=== PATIENT | male | born 1945 | race Caucasian/White ===

== ENCOUNTER → 2016-11-01 | Outpatient (CLI) | payer BC ==
[~2016-11-01] MED LIST: ASPI81TA28 PO; GLCSR5 PO; IBUP-103 PO; INDO-24 PO; METF500T5 PO; MULT-506 PO; NEOMOIN2 TOP; OXYC-57 PO
[2016-11-01 12:28] LABS: BASO % 0.8 %; BASO ABS # 0.05 K/uL (0-0.2); COMPLETE YES; EOS % 2.1 %; HEMATOCRIT 43.7 % (42-52); IG% 0.2 %; LYMPH ABS # 1.97 K/uL (1.2-3.4); MEAN CELL VOLUME 85.4 fL (80-100); MEAN CORPUSCULAR HEMOGLOBIN 30.1 pg (25-34); MEAN CORPUSCULAR HGB CONC 35.2 g/dl (32-36); MEAN PLATELET VOLUME 12.1 fL (7.4-10.4); MONO % 9.5 %; NEUT % 57.4 %; PLATELET COUNT 219 K/uL (130-400); RED BLOOD COUNT 5.12 M/uL (4.7-6.1); WHITE BLOOD COUNT 6.56 K/uL (4.8-10.8)
[2016-11-01 12:47] LABS: ESTIMATED AVERAGE GLUCOSE 157 mg/dl; HA1C FLAG Normal (Normal)
[2016-11-01 12:53] LABS: BLOOD UREA NITROGEN 20 mg/dl (7-18); BUN/CREATININE RATIO 16.8 (10-20); CALCIUM 8.8 mg/dl (8.5-10.1); CARBON DIOXIDE 21 mmol/L (21-32); CHLORIDE 103 mmol/L (98-107); GLUCOSE 158 mg/dl (70-99); POTASSIUM 4.1 mmol/L (3.5-5.1); SODIUM 137 mmol/L (136-145)
[2016-11-01 12:57] LABS: CHOLESTEROL 178 mg/dl (0-200); CHOLESTEROL/HDL RATIO 3.6; HDL CHOLESTEROL 49 mg/dl; LDL CHOLESTEROL CALCULATED 83 mg/dl; TRIGLYCERIDES 229 mg/dl (0-150); VERY LOW DENSITY LIPOPROT CALC 46 mg/dl
== END | disposition home or self-care (01) ==
LOC: C.LABBFT 08:25
PROVIDERS: ATTEND Internal Medicine
DX: E11.9 Type 2 diabetes mellitus without complications (principal)

== ENCOUNTER → 2017-02-13 | Outpatient (CLI) | payer BC ==
[~2017-02-13] MED LIST changes: -NEOMOIN2 TOP; +NEOMOIN3 TOP; -OXYC-57 PO
[2017-02-13 12:46] LABS: RATIO 8.3 mcg/mg (0-30.0)
[2017-02-13 13:02] LABS: ESTIMATED AVERAGE GLUCOSE 157 mg/dl; HA1C FLAG Normal (Normal)
== END | disposition home or self-care (01) ==
LOC: C.LABBFT 08:46
PROVIDERS: ATTEND Physician Assistant
DX: E11.9 Type 2 diabetes mellitus without complications (principal)

== ENCOUNTER → 2017-05-28 | Outpatient (CLI) | payer BC ==
[~2017-05-28] MED LIST changes: +NEOMOIN2 TOP; -NEOMOIN3 TOP
[2017-05-28 13:12] LABS: BASO % 0.3 %; BASO ABS # 0.03 K/uL (0-0.2); COMPLETE YES; EOS % 0.6 %; HEMATOCRIT 42.1 % (42-52); IG% 0.3 %; LYMPH % 12.6 %; LYMPH ABS # 1.48 K/uL (1.2-3.4); MEAN CORPUSCULAR HEMOGLOBIN 30.9 pg (25-34); MEAN CORPUSCULAR HGB CONC 34.7 g/dl (32-36); MEAN PLATELET VOLUME 11.8 fL (7.4-10.4); MONO % 10.9 %; NEUT % 75.3 %; PLATELET COUNT 232 K/uL (130-400); RED BLOOD COUNT 4.73 M/uL (4.7-6.1); WHITE BLOOD COUNT 11.74 K/uL (4.8-10.8)
[2017-05-28 13:50] LABS: ALT/SGPT 47 U/L (12-78); AST/SGOT 24 U/L (15-37); BLOOD UREA NITROGEN 23 mg/dl (7-18); BUN/CREATININE RATIO 14.4 (10-20); CALCIUM 9.8 mg/dl (8.5-10.1); CARBON DIOXIDE 28 mmol/L (21-32); CHLORIDE 105 mmol/L (98-107); GLUCOSE 104 mg/dl (70-99); POTASSIUM 4.4 mmol/L (3.5-5.1); SODIUM 137 mmol/L (136-145)
[2017-05-28 13:52] LABS: ALB/GLOB RATIO 0.8 (0.9-2); ALKALINE PHOSPHATASE 73 U/L (45-117)
[2017-05-28 15:09] LABS: URINE APPEARANCE CLEAR (CLEAR); URINE BILIRUBIN NEG (NEG); URINE COLOR DK YELLOW; URINE EPITHELIAL CELL AUTO 0-5 /lpf (0-5); URINE NITRITE NEG (NEG); URINE SPECIFIC GRAVITY 1.021 (1.000-1.030); UROBILINOGEN NEG (NEG)
[2017-05-28 15:11] LABS: MANUAL MICROSCOPIC REQUIRED? NO; REVIEW REQ? NO
== END | disposition home or self-care (01) ==
LOC: C.LAB1850 11:31
PROVIDERS: ATTEND Physician Assistant
DX: R10.9 Unspecified abdominal pain (principal)

== ENCOUNTER → 2017-05-29 | Outpatient (CLI) | payer BC ==
--- NOTE | 2017-05-29 11:01 | DIAGNOSTIC IMAGING REPORT ---
EXAMINATION: RENAL ULTRASOUND CLINICAL HISTORY: R10.9 Flank painR31.9 [id number] COMPARISON STUDY: FINDINGS: The right kidney measures 11 cm. The left kidney measures 11.9 cm. There is no evidence of hydronephrosis. There are 2 right renal cysts measuring 25 mm and 16 mm respectively. There is a contour deformity involving the midpole of the left kidney, likely representing a dromedary hump. This could be confirmed with a contrast-enhanced CT scan if deemed clinically necessary. The bladder was not well-distended. No bladder lesions are visualized. There is increased hepatic echogenicity, a nonspecific finding often seen in hepatic steatosis IMPRESSION : 1. No evidence of hydronephrosis 2. Right renal cysts measuring 25 and 16 mm respectively 3. 22 mm Contour deformity involving the midpole the left kidney, likely representing a dromedary hump. The suspected benign etiology of this finding could be confirmed with a contrast-enhanced CT scan if deemed clinically necessary. 4. Suspected hepatic steatosis Electronically signed by: Bladimir Villasenor M.D. 05/29/2017 10:59 AM Dictated Date/Time: 05/29/2017 10:56 AM
== END | disposition home or self-care (01) ==
LOC: C.ULTR 10:11
PROVIDERS: ATTEND Physician Assistant
DX: R10.9 Unspecified abdominal pain (principal); R31.9 Hematuria, unspecified; N28.1 Cyst of kidney, acquired

== ENCOUNTER → 2017-05-31 | Outpatient (CLI) | payer BC ==
[~2017-05-31] MED LIST changes: +OPTIRAY 320 IV PRN
--- NOTE | 2017-05-31 13:24 | DIAGNOSTIC IMAGING REPORT ---
CT SCAN OF THE ABDOMEN WITH IV CONTRAST CLINICAL HISTORY: Right flank pain. COMPARISON STUDY: Renal ultrasound dated 05/29/2017. TECHNIQUE: Following the IV administration of 94 cc of Optiray 320, CT scan of the abdomen is performed from the lung bases to the pelvic inlet. Images are reviewed in the axial, sagittal, and coronal planes. IV contrast was administered without complication. A dose lowering technique was utilized adhering to the principles of ALARA. CT DOSE: 725.16 mGycm FINDINGS: Lung bases: The heart is normal in size and without pericardial effusion. The lung bases are clear. There is a tiny hiatal hernia. Liver: The contrast-enhanced liver is enlarged, measuring 20 cm in length. The liver demonstrates diffusely diminished attenuation consistent with hepatic steatosis. There is no intrahepatic biliary ductal dilatation. The hepatic veins and portal veins are patent. Gallbladder: Unremarkable. Spleen: The spleen is enlarged measuring 16 cm in length. Pancreas: Unremarkable. Adrenal glands: Unremarkable. Kidneys: The contrast enhanced kidneys images are cortical atrophy. There is mild right hydroureteronephrosis. There is no left-sided hydronephrosis. There is slightly diminished perfusion of the right kidney as compared to the left. There are 2 cortical cysts seen in the right kidney measuring up to 2.6 cm. Parapelvic cysts are noted bilaterally. Additional subcentimeter cortical hypodensities also likely represent cysts but are too small for definitive characterization. Abdominal vasculature: The abdominal aorta is normal in course and caliber noting mild to moderate atherosclerotic calcification. Bowel: Visualized portions of the small bowel and colon are normal in course and caliber. The appendix is well-visualized and normal. Peritoneum: There is no intraperitoneal free air or abdominal ascites. There is a small fat-containing umbilical hernia. Lymphadenopathy: None. Skeletal structures: The skeletal structures are osteopenic. No lytic or blastic lesions are seen. IMPRESSION: 1. There is mild right hydroureteronephrosis as well as slightly diminished perfusion of the right kidney as compared to the left. This suggests distal obstruction, statistically likely related to a ureteral calculus. This cannot be further assessed as the pelvis was not imaged. 2. Hepatomegaly and hepatic steatosis. 3. Additional findings as above. Electronically signed by: Gordon Duran M.D. 05/31/2017 1:23 PM Dictated Date/Time: 05/31/2017 1:17 PM
== END | disposition home or self-care (01) ==
LOC: C.CTS 12:00
PROVIDERS: ATTEND Physician Assistant
DX: R10.9 Unspecified abdominal pain (principal); R16.0 Hepatomegaly, not elsewhere classified; K76.0 Fatty (change of) liver, not elsewhere classified; N13.30 Unspecified hydronephrosis

== ENCOUNTER → 2017-06-04 | Outpatient (CLI) | payer BC ==
[~2017-06-04] MED LIST changes: -OPTIRAY 320 IV PRN
--- NOTE | 2017-06-04 09:42 | DIAGNOSTIC IMAGING REPORT ---
RENAL ULTRASOUND HISTORY: R10.9 Flank pain N20.1 Right ureteral stone [id number] COMPARISON: Abdomen and pelvis CT 05/31/2017. FINDINGS: Right kidney: 11.8 cm. No hydronephrosis. Normal corticomedullary differentiation and cortical thickness. There are 2 cysts measuring 2.6 and 1.5 cm. There are few small peripelvic cysts which are not well visualized. Left kidney: 12.2 cm. No hydronephrosis. Normal corticomedullary differentiation and cortical thickness. Multiple peripelvic cysts. Bladder: No bladder wall thickening. The bilateral ureteral jets were identified. Hepatic steatosis. IMPRESSION: 1. No hydronephrosis identified. 2. Bilateral renal cysts. Electronically signed by: Omid Arambula M.D. 06/04/2017 9:41 AM Dictated Date/Time: 06/04/2017 9:37 AM
[2017-06-04 10:14] LABS: BLOOD UREA NITROGEN 20 mg/dl (7-18); BUN/CREATININE RATIO 14.6 (10-20); CALCIUM 9.8 mg/dl (8.5-10.1); CARBON DIOXIDE 28 mmol/L (21-32); CHLORIDE 103 mmol/L (98-107); GLUCOSE 117 mg/dl (70-99); POTASSIUM 4.8 mmol/L (3.5-5.1); SODIUM 138 mmol/L (136-145)
== END | disposition home or self-care (01) ==
LOC: C.ULTR 08:33
PROVIDERS: ATTEND Physician Assistant
DX: N20.1 Calculus of ureter (principal); R10.9 Unspecified abdominal pain; N28.1 Cyst of kidney, acquired

== ENCOUNTER → 2017-06-21 | Outpatient (CLI) | payer BC ==
[2017-06-21 12:41] LABS: BLOOD UREA NITROGEN 21 mg/dl (7-18); BUN/CREATININE RATIO 19.1 (10-20); CALCIUM 8.9 mg/dl (8.5-10.1); CARBON DIOXIDE 29 mmol/L (21-32); CHLORIDE 106 mmol/L (98-107); GLUCOSE 103 mg/dl (70-99); POTASSIUM 4.5 mmol/L (3.5-5.1); SODIUM 139 mmol/L (136-145)
[2017-06-21 14:26] LABS: ESTIMATED AVERAGE GLUCOSE 131 mg/dl; HA1C FLAG Normal (Normal)
== END | disposition home or self-care (01) ==
LOC: C.LAB1850 10:59
PROVIDERS: ATTEND Physician Assistant
DX: E11.9 Type 2 diabetes mellitus without complications (principal)

== ENCOUNTER → 2017-09-20 | Outpatient (CLI) | payer BC ==
[~2017-09-20] MED LIST changes: -NEOMOIN2 TOP; +NEOMOIN3 TOP
[2017-09-20 12:38] LABS: BASO % 0.6 %; BASO ABS # 0.04 K/uL (0-0.2); EOS % 1.7 %; EOS ABS # 0.11 K/uL (0-0.5); HEMATOCRIT 44.8 % (42-52); HEMOGLOBIN 15.5 g/dL (14.0-18.0); IG# 0.01 K/uL (0.00-0.02); LYMPH % 28.5 %; LYMPH ABS # 1.81 K/uL (1.2-3.4); MEAN CELL VOLUME 88.7 fL (80-100); MEAN CORPUSCULAR HEMOGLOBIN 30.7 pg (25-34); MEAN CORPUSCULAR HGB CONC 34.6 g/dl (32-36); MONO % 10.6 %; MONO ABS # 0.67 K/uL (0.11-0.59); NEUT % 58.4 %; NEUT ABS # 3.71 K/uL (1.4-6.5); PLATELET COUNT 217 K/uL (130-400); RED CELL DISTRIBUTION WIDTH CV 12.8 % (11.5-14.5); RED CELL DISTRIBUTION WIDTH SD 41.1 fL (36.4-46.3); WHITE BLOOD COUNT 6.35 K/uL (4.8-10.8)
[2017-09-20 12:53] LABS: HEMOGLOBIN A1C 6.4 % (4.5-5.6)
[2017-09-20 13:05] LABS: AST/SGOT 44 U/L (15-37); BLOOD UREA NITROGEN 22 mg/dl (7-18); CALCIUM 9.4 mg/dl (8.5-10.1); CARBON DIOXIDE 29 mmol/L (21-32); CHOLESTEROL 178 mg/dl (0-200); CREATININE 1.27 mg/dl (0.60-1.40); GLUCOSE 143 mg/dl (70-99); POTASSIUM 4.3 mmol/L (3.5-5.1); SODIUM 135 mmol/L (136-145)
[2017-09-20 13:09] LABS: ALT/SGPT 79 U/L (12-78); LDL CHOLESTEROL CALCULATED 88 mg/dl
== END | disposition home or self-care (01) ==
LOC: C.LABBFT 08:00
PROVIDERS: ATTEND Physician Assistant
DX: E11.9 Type 2 diabetes mellitus without complications (principal)

== ENCOUNTER → 2017-12-31 | Outpatient (CLI) | payer BC ==
[2017-12-31 12:27] LABS: HEMOGLOBIN A1C 6.7 % (4.5-5.6)
== END | disposition home or self-care (01) ==
LOC: C.LABBFT 07:56
PROVIDERS: ATTEND Internal Medicine
DX: N20.0 Calculus of kidney (principal); E11.9 Type 2 diabetes mellitus without complications

== ENCOUNTER → 2018-04-29 | Outpatient (CLI) | payer BC ==
[2018-04-29 13:02] LABS: BASO % 0.8 %; BASO ABS # 0.05 K/uL (0-0.2); EOS % 1.7 %; EOS ABS # 0.11 K/uL (0-0.5); HEMATOCRIT 41.2 % (42-52); HEMOGLOBIN 13.8 g/dL (14.0-18.0); IG# 0.02 K/uL (0.00-0.02); LYMPH % 29.3 %; LYMPH ABS # 1.88 K/uL (1.2-3.4); MEAN CELL VOLUME 89.4 fL (80-100); MEAN CORPUSCULAR HEMOGLOBIN 29.9 pg (25-34); MEAN CORPUSCULAR HGB CONC 33.5 g/dl (32-36); MEAN PLATELET VOLUME 11.9 fL (7.4-10.4); MONO % 7.3 %; MONO ABS # 0.47 K/uL (0.11-0.59); NEUT % 60.6 %; NEUT ABS # 3.89 K/uL (1.4-6.5); PLATELET COUNT 202 K/uL (130-400); RED CELL DISTRIBUTION WIDTH CV 13.2 % (11.5-14.5); RED CELL DISTRIBUTION WIDTH SD 42.8 fL (36.4-46.3); WHITE BLOOD COUNT 6.42 K/uL (4.8-10.8)
[2018-04-29 13:31] LABS: HEMOGLOBIN A1C 6.7 % (4.5-5.6)
[2018-04-29 14:01] LABS: BLOOD UREA NITROGEN 20 mg/dl (7-18); CALCIUM 8.8 mg/dl (8.5-10.1); CARBON DIOXIDE 25 mmol/L (21-32); CHOLESTEROL 141 mg/dl (0-200); CREATININE 1.13 mg/dl (0.60-1.40); GLUCOSE 120 mg/dl (70-99); LDL CHOLESTEROL CALCULATED 79 mg/dl; POTASSIUM 4.4 mmol/L (3.5-5.1); SODIUM 137 mmol/L (136-145); URIC ACID 7.2 mg/dl (2.6-7.2)
== END | disposition home or self-care (01) ==
LOC: C.LABBFT 08:22
PROVIDERS: ATTEND Internal Medicine
DX: E11.9 Type 2 diabetes mellitus without complications (principal)